=== PATIENT | male | born 1955 | race Caucasian/White ===

== ENCOUNTER 2016-07-03 05:34 | Inpatient (IN) | payer MEDICAID ==
[~2016-07-03] VITALS: Ht 165.1 cm; Wt 73.8 kg
[~2016-07-03 05:34] MED LIST: MULTI PO
[2016-07-03] MEDS ORDERED: SOD CHLORIDE 0.9% 1,000 ML IV STA (06:10)
[2016-07-03] MEDS ORDERED: DIPHTH/TET/ACEL PERTUSS (ADULT) 0.5 ML VIAL IM* ONE (06:30)
[2016-07-03] MEDS ORDERED: LORAZEPAM 2 MG INJ IV ONE (06:30)
--- NOTE | 2016-07-03 07:06 | RADRPT ---
PROCEDURE: CT BRAIN WITHOUT CONTRAST CLINICAL INDICATION: 61-year-old male with trauma. TECHNIQUE: The study was performed utilizing [employer] VCT 64-slice CT scanner. Direct axial sections were obtained from the foramen magnum to the vertex without the use of intravenous contrast material. Sagittal and coronal reformations were obtained. Sagittal and coronal reformations were obtained. One or more the following dose reduction techniques were utilized: automated exposure cont rol, adjustment of the mA and/or kV according to patient's size or use of iterative reconstruction t echnique. The images were viewed on a PACS workstation. CTD/vol = 44.7 mGy; Total Exam DLP = 720.2 mGy-cm. COMPARISON: CT brain July 27, 2015. FINDINGS: There is zfid-uj-mdpdbwvn prominence of the sulci and cisternal spaces consistent with diffuse volum e loss with compensatory ventricular enlargement. There is no evidence for mass effect or midline s hift. There are periventricular areas of decreased density consistent with microangiopathic ischemi c changes. There is no evidence for acute intra or extra-axial blood. Calcifications are seen withi n the intracranial carotid arteries bilaterally. The bony calvarium is intact. There is right pariet al scalp soft tissue swelling/subgaleal hematoma. The partially visualized paranasal sinuses and mas toid air cells are without significant abnormal soft tissue. There is again visualized a prominent l ipoma within the left upper posterior cervical region measuring approximately 4.9 x 2.9 cm. IMPRESSION: 1. The intracranial contents are without significant interval change compared to the patient's prio r study from July 27, 2015. 2. Zglx-xi-mispmchg diffuse volume loss. 3. Microangiopathic ischemic changes. 4. Vascular calcifications. 5. Right parietal scalp soft tissue swelling/subgaleal hematoma. 6. Left upper posterior cervical lipoma. .Devin Ford MD, MD Date Time Electronically viewed and signed by .Devin Ford MD, on 07/03/2016 07:06 .Debbie/
--- NOTE | 2016-07-03 07:28 | RADRPT ---
PROCEDURE: CT CERVICAL SPINE WITHOUT CONTRAST CLINICAL INDICATION: 61-year-old male with neck pain following trauma. TECHNIQUE: The study was performed utilizing a GE [id number] VCT 64-slice CT scanner. Direct axia l sections were obtained through the cervical spine. Coronal and sagittal re-formations were obtain ed. One or more of the following dose reduction techniques were utilized: automated exposure control , adjustment of the mA and/or kV according to patient's size or use of iterative reconstruction tech nique. The images were viewed on a PACS workstation. CTD/vol = 44.3 mGy; Total Exam DLP = 888.6 mGy -cm. COMPARISON: The cervical spine May 19, 2015. FINDINGS: The patients head/neck is mildly tilted to the left. There is straightening of the normal cervical lordosis. Otherwise, the cervical vertebral bodies have normal heights and anatomic alignment. Ther e is no evidence for acute cervical spine fracture. Mild degenerative changes are seen within the a tlantoaxial junction. At C2-3 there is minimal right uncovertebral degenerative changes without significant central or for aminal stenosis. At C3-4 there is mild bilateral uncovertebral degenerative changes resulting in mild bilateral jessie inal stenosis. At C4-5 there are minimal bilateral uncovertebral degenerative changes and facet arthropathy without significant central or foraminal stenosis. At C5-6 there is mild disk space narrowing. There are minimal uncovertebral degenerative changes. There is no significant central or foraminal stenosis. At C6-7 there is moderate disk space narrowing. There is posterior disk-osteophyte complex projecti ng 3 mm beyond the posterior margin. There are bilateral uncovertebral degenerative changes resulti ng in moderate right and ijsuitfj-pz-fnenpk left foraminal stenosis. At C7-T1 there is mild bilateral facet arthropathy. There is no significant central or foraminal st enosis. IMPRESSION: 1. Straightening of the normal cervical lordosis. 2. No CT evidence for acute cervical spine fracture. 3. Mild cervical spondylosis most severe at C6-7 without significant interval change compared to th e patient's prior study from May 19, 2015. .Devin Ford MD, MD Date Time Electronically viewed and signed by .Devin Ford MD, MD on 07/03/2016 07:28 .Bubba
[2016-07-03 07:39] LABS: ADD SCAN DIFF NO
[2016-07-03 07:55] LABS: ALBUMIN 3.2 g/dl (3.3-4.9); ALBUMIN/GLOBULIN RATIO 0.68; BILIRUBIN,DIRECT 0.4 mg/dl (0.00-0.20); BILIRUBIN,INDIRECT 1.9 mg/dl (0-1.1); BILIRUBIN,TOTAL 2.3 mg/dl (0.2-1.3); CREATININE 0.61 mg/dl (0.61-1.24); POTASSIUM 3.9 mmol/L (3.5-5.1); TOTAL PROTEIN 7.9 g/dl (6.1-8.1)
[2016-07-03] MEDS ORDERED: VANCOMYCIN 1 GM (PMX) 250 ML IVPB SCH (08:00)
[2016-07-03 08:04] LABS: ABNORMAL IP MESSAGE 1; BASOPHIL # 0.1 10^3/ul (0.0-0.1); BASOPHILS % 1.5 % (0.0-2.0); EOSINOPHILS # 0.3 10^3/ul (0.0-0.5); EOSINOPHILS % 5.9 % (0.0-7.0); HEMATOCRIT 37.2 % (42.0-52.0); HEMOGLOBIN 12.5 g/dl (14.0-18.0); LYMPHOCYTES # 1.1 10^3/ul (0.8-2.9); LYMPHOCYTES % 23.1 % (15.0-51.0); MEAN CORPUSCULAR HEMOGLOBIN 34.4 pg (29.0-33.0); MEAN CORPUSCULAR HGB CONC 33.6 g/dl (32.0-37.0); MEAN CORPUSCULAR VOLUME 102.5 fl (82.0-101.0); MEAN PLATELET VOLUME 12.7 fl (7.4-10.4); MONOCYTE # 0.7 10^3/ul (0.3-0.9); NEUTROPHIL # 2.5 10^3/ul (1.6-7.5); NEUTROPHILS % 54.1 % (39.0-77.0); PLATELET COUNT 33 10^3/UL (140-415); RED BLOOD COUNT 3.63 10^6/ul (4.70-6.10); RED CELL DISTRIBUTION WIDTH 16.5 % (11.5-14.5); WHITE BLOOD COUNT 4.6 10^3/ul (4.8-10.8)
--- NOTE | 2016-07-03 08:10 | RADRPT ---
PROCEDURE: XR Forearm 2 Views. CLINICAL INDICATION: Left arm pain and trauma TECHNIQUE: AP and lateral views of the left forearm were obtained. COMPARISON: No prior studies are available for comparison. FINDINGS: The osseous structures are intact. No destructive bony lesions are identified. Interosseous spaces are grossly unremarkable. The soft tissues are unremarkable. IMPRESSION: No visualized traumatic injury. If there is high clinical suspicion for traumatic injury, further evaluation with CT should be consi dered. RPTAT: AA .Mitchel Fletcher MD, Date Time Electronically viewed and signed by .Mitchel Fletcher MD, on 07/03/2016 08:10 .P/
--- NOTE | 2016-07-03 09:25 | RADRPT ---
PROCEDURE: XR Left Elbow. CLINICAL INDICATION: Trauma and pain. TECHNIQUE: AP, lateral and oblique views of the left elbow performed. COMPARISON: None. FINDINGS: There is diffuse soft tissue swelling around the elbow. A small effusion is noted. Degenerative sp urring is noted off of the medial margin of the olecranon fossa. No discrete bony fracture is noted . IMPRESSION: 1. Equivocal anterior fat pad sign which could represent a hemarthrosis. 2. No discrete fracture dislocation is identified at this time. 3. Immobilization of the elbow and follow-up imaging in 10 days is recommended if there is I index of suspicion for fracture. 4. Soft tissue swelling around the left elbow. RPTAT:AAJJ Physician Arnaldo Date Time Electronically viewed and signed by Keo Gross Physician on 07/03/2016 09:24 /
--- NOTE | 2016-07-03 11:23 | ERA ---
ER Documentation Chief Complaint Date/Time DATE: 07/03/16 TIME: 06:00 Chief Complaint FOUND IN MIDDLE OF STREE, POSS FALL, HEMATOMA ON BACK OF HEAD, ARM LAC,ETOH HPI History is supplemented by review of previous medical records and discussion with the transferring paramedics. 61-year-old male with a history of chronic alcohol abuse, liver cirrhosis, ascites, hepatic encephalopathy, atrial fibrillation, thrombocytopenia and hypertension presents the ED via ambulance after being found lying in the street. Patient states he fell earlier this morning but has retrograde amnesia to the event. Last remembers being transported to the emergency department admits to alcohol consumption but denies drug use. Complains of mild, generalized headache but denies visual changes, focal weakness or numbness. Complaining of sharp, moderate pain to the left upper extremity exacerbated by movement. Denies abdominal pain or back pain. Denies nausea, vomiting, diarrhea or constipation. No hematemesis, hematochezia or melanotic stools. No neck or back pain. No URI symptoms or cough. Denies shortness of breath, chest pain or palpitations. No fevers or chills. ROS All systems reviewed and are negative except as per history of present illness. Medications Home Meds Discontinued Scripts Multivitamins* (Theragran*) 1 Tab Tab, 1 TAB PO DAILY for 30 Days, TAB Prov:ALFREDO XIAO NP 07/30/15 Allergies Allergies: Coded Allergies: No Known Drug Allergies (Verified Allergy, Unknown, 07/03/16) PMhx/Soc Reviewed in chart. As per HPI. Anesthesia Reaction: No Hx Neurological Disorder: No Hx Respiratory Disorders: No Hx Psychiatric Problems: No Hx Miscellaneous Medical Probl: No (ETOH ABUSE ) Hx Alcohol Use: Yes Hx Substance Use: No Hx Tobacco Use: No Smoking Status: Smoker,current status unk FmHx Unknown. Not relevant to presenting complaint. Physical Exam Vitals Vital Signs Date Time Temp Pulse Resp B/P Pulse Ox O2 Delivery O2 Flow Rate FiO2 07/03/16 10:56 97.6 71 14 142/81 97 Room Air 07/03/16 10:15 64 16 138/96 98 Room Air 07/03/16 08:30 69 16 114/76 98 Room Air 07/03/16 06:13 76 16 124/71 97 Room Air 07/03/16 05:45 96.5 80 17 140/81 95 Physical Exam Const: Sleepy but easily arousable. Head: Occipital hematoma with 1.5 cm laceration. No active bleeding. Mild tenderness. Eyes: Normal Conjunctiva pupils equal reactive to light, extraocular movements are intact. Horizontal nystagmus. ENT: Normal External Ears, Nose and Mouth. Negative lynn sign. 2 cm nasal laceration/abrasion. No active bleeding. No bony tenderness or crepitus. No septal hematoma. No epistaxis. Neck: Full range of motion..~ No meningismus. Resp: Breath sounds are equal and clear to auscultation bilaterally Cardio: Regular rate and rhythm, no murmurs Abd: Soft, non tender, non distended. Normal bowel sounds Skin: No petechiae or rashes Back: No midline or flank tenderness Ext: Left upper extremity: Significant forearm swelling and tenderness with dorsal abrasion and mild bleeding. No subcutaneous crepitus. Elbow: Decreased range of motion but nontender. No shoulder swelling or tenderness. No wrist swelling or tenderness. Distal pulses 4+. Motor and sensory equal bilaterally. Neur: Sleepy but arousable. Cranial nerves II through XII are grossly intact. No focal deficit observed. Psych: Appears intoxicated but not anxious or depressed. Result Diagram: 07/04/16 1000 07/04/16 1000 Results 24 hrs Laboratory Tests Test 07/03/16 07:00 White Blood Count 4.610^3/ul Red Blood Count 3.6310^6/ul Hemoglobin 12.5g/dl Hematocrit 37.2% Mean Corpuscular Volume 102.5fl Mean Corpuscular Hemoglobin 34.4pg Mean Corpuscular Hemoglobin Concent 33.6g/dl Red Cell Distribution Width 16.5% Platelet Count 3310^3/UL Mean Platelet Volume 12.7fl Neutrophils % 54.1% Lymphocytes % 23.1% Monocytes % 15.0% Eosinophils % 5.9% Basophils % 1.5% Nucleated Red Blood Cells % 0.0/100WBC Neutrophils # 2.510^3/ul Lymphocytes # 1.110^3/ul Monocytes # 0.710^3/ul Eosinophils # 0.310^3/ul Basophils # 0.110^3/ul Nucleated Red Blood Cells # 0.010^3/ul Large Platelets FEW Giant Platelets FEW Sodium Level 143mmol/L Potassium Level 3.9mmol/L Chloride Level 111mmol/L Carbon Dioxide Level 26mmol/L Anion Gap 10 Blood Urea Nitrogen 8mg/dl Creatinine 0.61mg/dl Glucose Level 114mg/dl Calcium Level 8.0mg/dl Total Bilirubin 2.3mg/dl Direct Bilirubin 0.40mg/dl Indirect Bilirubin 1.9mg/dl Aspartate Amino Transf (AST/SGOT) 122IU/L Alanine Aminotransferase (ALT/SGPT) 41IU/L Alkaline Phosphatase 180IU/L Creatine Kinase 1003IU/L Total Protein 7.9g/dl Albumin 3.2g/dl Globulin 4.70g/dl Albumin/Globulin Ratio 0.68 Ethyl Alcohol Level 252.0mg/dl Current Medications Medications (Trade) Dose Ordered Sig/Nati Route PRN Reason Start Time Stop Time Status Last Admin Dose Admin Diphtheria/ Tetanus/Acell Pertussis 0.5 ml 0.5 ml ONCE ONCE IM* 07/03/16 06:30 07/03/16 06:31 DC 07/03/16 07:10 Sodium Chloride (NS) 1,000 ml @ 1,000 mls/hr Q1H STAT IV 07/03/16 06:10 07/03/16 07:09 DC 07/03/16 07:11 Lorazepam 1 mg 1 mg ONCE ONCE IV 07/03/16 06:30 07/03/16 06:31 DC 07/03/16 07:10 Vancomycin HCl (Vancocin) 250 ml @ 125 mls/hr ONCE IVPB 07/03/16 08:00 07/03/16 09:59 DC 07/03/16 08:23 PROCEDURE: CT BRAIN WITHOUT CONTRAST CLINICAL INDICATION: 61-year-old male with trauma. TECHNIQUE: The study was performed utilizing [employer] VCT 64-slice CT scanner. Direct axial sections were obtained from the foramen magnum to the vertex without the use of intravenous contrast material. Sagittal and coronal reformations were obtained. Sagittal and coronal reformations were obtained. One or more the following dose reduction techniques were utilized: automated exposure control, adjustment of the mA and/or kV according to patient's size or use of iterative reconstruction technique. The images were viewed on a PACS workstation. CTD/vol = 44.7 mGy; Total Exam DLP = 720.2 mGy-cm. COMPARISON: CT brain July 27, 2015. FINDINGS: There is uhxi-ws-lymhxiet prominence of the sulci and cisternal spaces consistent with diffuse volume loss with compensatory ventricular enlargement. There is no evidence for mass effect or midline shift. There are periventricular areas of decreased density consistent with microangiopathic ischemic changes. There is no evidence for acute intra or extra-axial blood. Calcifications are seen within the intracranial carotid arteries bilaterally. The bony calvarium is intact. There is right parietal scalp soft tissue swelling /subgaleal hematoma. The partially visualized paranasal sinuses and mastoid air cells are without significant abnormal soft tissue. There is again visualized a prominent lipoma within the left upper posterior cervical region measuring approximately 4.9 x 2.9 cm. IMPRESSION: 1. The intracranial contents are without significant interval change compared to the patient's prior study from July 27, 2015. 2. Nuhz-vy-bwihvobe diffuse volume loss. 3. Microangiopathic ischemic changes. 4. Vascular calcifications. 5. Right parietal scalp soft tissue swelling/subgaleal hematoma. 6. Left upper posterior cervical lipoma. .Devin Ford MD, MD Date Time Electronically viewed and signed by .Devin Ford MD, MD on 07/03/2016 07:06 .M/ PROCEDURE: CT CERVICAL SPINE WITHOUT CONTRAST CLINICAL INDICATION: 61-year-old male with neck pain following trauma. TECHNIQUE: The study was performed utilizing a GE [employer] 64-slice CT scanner. Direct axial sections were obtained through the cervical spine. Coronal and sagittal re-formations were obtained. One or more of the following dose reduction techniques were utilized: automated exposure control, adjustment of the mA and/or kV according to patient's size or use of iterative reconstruction technique. The images were viewed on a PACS workstation. CTD/ vol = 44.3 mGy; Total Exam DLP = 888.6 mGy-cm. COMPARISON: The cervical spine May 19, 2015. FINDINGS: The patients head/neck is mildly tilted to the left. There is straightening of the normal cervical lordosis. Otherwise, the cervical vertebral bodies have normal heights and anatomic alignment. There is no evidence for acute cervical spine fracture. Mild degenerative changes are seen within the atlantoaxial junction. At C2-3 there is minimal right uncovertebral degenerative changes without significant central or foraminal stenosis. At C3-4 there is mild bilateral uncovertebral degenerative changes resulting in mild bilateral foraminal stenosis. At C4-5 there are minimal bilateral uncovertebral degenerative changes and facet arthropathy without significant central or foraminal stenosis. At C5-6 there is mild disk space narrowing. There are minimal uncovertebral degenerative changes. There is no significant central or foraminal stenosis. At C6-7 there is moderate disk space narrowing. There is posterior disk- osteophyte complex projecting 3 mm beyond the posterior margin. There are bilateral uncovertebral degenerative changes resulting in moderate right and urnazgsp-ln-cvcdae left foraminal stenosis. At C7-T1 there is mild bilateral facet arthropathy. There is no significant central or foraminal stenosis. IMPRESSION: 1. Straightening of the normal cervical lordosis. 2. No CT evidence for acute cervical spine fracture. 3. Mild cervical spondylosis most severe at C6-7 without significant interval change compared to the patient's prior study from May 19, 2015. .Devin Ford MD, MD Date Time Electronically viewed and signed by .Devin Ford MD, MD on 07/03/2016 07:28 .M/ PROCEDURE: XR Left Elbow. CLINICAL INDICATION: Trauma and pain. TECHNIQUE: AP, lateral and oblique views of the left elbow performed. COMPARISON: None. FINDINGS: There is diffuse soft tissue swelling around the elbow. A small effusion is noted. Degenerative spurring is noted off of the medial margin of the olecranon fossa. No discrete bony fracture is noted. IMPRESSION: 1. Equivocal anterior fat pad sign which could represent a hemarthrosis. 2. No discrete fracture dislocation is identified at this time. 3. Immobilization of the elbow and follow-up imaging in 10 days is recommended if there is I index of suspicion for fracture. 4. Soft tissue swelling around the left elbow. RPTAT:AAJJ Physician Arnaldo Date Time Electronically viewed and signed by Physician Arnaldo on 07/03/2016 09:24 JM/ PROCEDURE: XR Forearm 2 Views. CLINICAL INDICATION: Left arm pain and trauma TECHNIQUE: AP and lateral views of the left forearm were obtained. COMPARISON: No prior studies are available for comparison. FINDINGS: The osseous structures are intact. No destructive bony lesions are identified. Interosseous spaces are grossly unremarkable. The soft tissues are unremarkable. IMPRESSION: No visualized traumatic injury. If there is high clinical suspicion for traumatic injury, further evaluation with CT should be considered. RPTAT: AA .Mitchel Fletcher MD, MD Date Time Electronically viewed and signed by .Mitchel Fletcher MD, MD on 07/03/2016 08:10 .P/ Procedures/MDM DOCUMENTS REVIEWED: ED nurse, prior ED, prior records Laceration Repair by me: Anesthesia: 1% lidocaine locally Location: Scalp Tendon/Joint/Nerves: No injury Foreign body: None detected after copious irrigation and exploration Technique: 3 surgical akhil Complexity: No subcutaneous sutures/mucosal repair/ edge excision Post Closure Length: 1.5 cm Patient's bleeding was easily controlled in the department and there is no indication of anemia. No evidence of compartment syndrome, neurologic injury, vascular injury, open joint, tendon laceration, or foreign body. 48 hour wound check. Scar minimization instructions given. MEDICAL DECISION MAKIN-year-old male with a history of chronic alcohol abuse, liver cirrhosis, ascites, hepatic encephalopathy, atrial fibrillation, thrombocytopenia and hypertension presents the ED via ambulance after being found lying in the street. Altered mental status with elevated alcohol level consistent with EtOH intoxication complicated by an elevated ammonia level and hepatic encephalopathy. Closed head injury without CT evidence of intracranial bleed, infarct, mass or hydrocephalus. Occipital scalp laceration repaired primarily. Cervical spine imaging is negative for fracture or subluxation. Left upper extremity swelling and tenderness concerning for developing compartment syndrome and orthopedic consult obtained. No underlying radius or ulnar fracture. Borderline fat pad sign and a occult radial head fracture is not ruled out. Thrombocytopenia without evidence of active bleeding. Abdominal exam is benign without rebound, guarding or signs of peritonitis. Patient be admitted to [facility] for orthopedic consult, further observation and management. Counseled patient regarding diagnosis, diagnostic results and plan for admission. CALLS/CONSULTS: Time 09:50, Dr. Thompson, Recommends: Admission for observation and elevation of the extremity. Will consult. CALLS/CONSULTS: Time: 10:15, Dr Olivares. Recommends: Admission to med/surg PATIENT CARE TRANSITIONED: Time: 11:15, Dr. Olivares. Departure Diagnosis: Primary Impression: Acute alcohol intoxication Qualified Code: F10.129 - Acute alcohol intoxication, with unspecified complication Additional Impressions: Closed head injury Qualified Code: S09.90XA - Closed head injury, initial encounter Thrombocytopenia Scalp laceration Qualified Code: S01.01XA - Scalp laceration, initial encounter Pain and swelling of left upper extremity Liver cirrhosis Qualified Code: K70.31 - Alcoholic cirrhosis of liver with ascites Hepatic encephalopathy Condition: Serious ABDULLAHI KWONG MD Jul 03, 2016 11:23 Closed head injury Thrombocytopenia Scalp laceration Pain and swelling of left upper extremity Liver cirrhosis Condition: Serious ABDULLAHI KWONG MD Jul 03, 2016 11:23
[2016-07-03] MEDS ORDERED: ONDANSETRON 4 MG INJ IV PRN (11:30)
[2016-07-03] MEDS ORDERED: ACETAMINOPHEN 325 MG TAB PO PRN ×2 (11:30→15:00)
--- NOTE | 2016-07-03 14:49 | HP ---
Date/Time of Note Date/Time of Note DATE: 07/03/16 TIME: 14:39 Assessment/Plan VTE Prophylaxis VTE Prophylaxis Intervention: SCD's Assessment/Plan Assessment/Plan A 60-year-old male homeless alcoholic found on the street with 1. ?Fall with nasal and accipital injury but head CT negative 2. Probable R forearm fracture 3. Chronic atrial fibrillation, rate controlled. 4. History of high blood pressure, controlled. 5. 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 6. Chronic liver disease secondary to chronic alcoholism with hyperbilirubinemia, thrombocytopenia and coagulopathy 7. Hyperammonemia PLAN OF CARE: * Patient is homeless and we cannot guarantee good followup hence will admit for further care and obs * CT of R UE to r/o acute fracture from fall / in the interim keep forearm immobilized with sling / Dr Thompson consulted per ER * Resume all prev home meds * Add banana bag and librium to regimen * PRN pain control/ antiemetics/ antipyretics/ supportive care HPI/ROS Admit Date/Time Admit Date/Time 07/03/16 Hx of Present Illness 61-year-old male with a history of chronic alcohol abuse, liver cirrhosis, ascites, hepatic encephalopathy, atrial fibrillation, thrombocytopenia and hypertension presents the ED via ambulance after being found lying in the street. He had complained of headache and RUE pain on arrival. ROS 12 point review if systems was done and pertinent findings are as noted. Denies abdominal pain or back pain. Denies nausea, vomiting, diarrhea or constipation. No hematemesis, hematochezia or melanotic stools. No neck or back pain. No URI symptoms or cough. Denies shortness of breath, chest pain or palpitations. No fevers or chills. PMH/Family/Social Past Medical History 1. Alcoholism. 2. Chronic liver disease secondary to alcoholism. 3. High blood pressure. 4. History of atrial fibrillation. Past Surgical History Past Surgical Hx: no surgical history Social History Known alcoholic, has a remote history of substance abuse. Alcohol Use: heavy Smoking Status: Smoker,current status unk Drug Use: other (remotely) Exam/Review of Systems Vital Signs Vitals VS - Last 72 Hours, by Label Date Time Temp Pulse Resp B/P Pulse Ox O2 Delivery O2 Flow Rate FiO2 07/03/16 10:56 97.6 71 14 142/81 97 Room Air 07/03/16 10:15 64 16 138/96 98 Room Air 07/03/16 08:30 69 16 114/76 98 Room Air 07/03/16 06:13 76 16 124/71 97 Room Air 07/03/16 05:45 96.5 80 17 140/81 95 Vital Signs Date Time Temp Pulse Resp B/P Pulse Ox O2 Delivery O2 Flow Rate FiO2 07/03/16 10:56 97.6 71 14 142/81 97 Room Air Exam Exam GENERAL: The patient is lethargic and sleepy, but arousable. Once aroused, he was able to answer our questions. HEENT: Head is normocephalic. Nasal laceration. R Occipital hematoma with 1.5 cm laceration. There is no oozing or discharge. He has scleral jaundice, mild. NECK: Supple without adenopathy. CHEST: Clear with reduced air entry in the bases. CARDIOVASCULAR: S1 and S2, no tachycardia, no murmurs. ABDOMEN: Soft, nontender, mild distention, normoactive bowel sounds. EXTREMITIES: Lower extremities negative for edema. Left upper extremity has significant forearm swelling and tenderness with dorsal abrasion and mild bleeding. No subcutaneous crepitus. Elbow: Decreased range of motion but nontender. NEUROLOGIC: He does not seem to have any focal deficits. SKIN: Apart from the abrasion noted above, no other gross rash. Labs Result Diagram: 07/03/16 0707/03/16 07 Procedures Procedures PROCEDURE: XR Left Elbow. CLINICAL INDICATION: Trauma and pain. TECHNIQUE: AP, lateral and oblique views of the left elbow performed. COMPARISON: None. FINDINGS: There is diffuse soft tissue swelling around the elbow. A small effusion is noted. Degenerative spurring is noted off of the medial margin of the olecranon fossa. No discrete bony fracture is noted. IMPRESSION: 1. Equivocal anterior fat pad sign which could represent a hemarthrosis. 2. No discrete fracture dislocation is identified at this time. 3. Immobilization of the elbow and follow-up imaging in 10 days is recommended if there is I index of suspicion for fracture. 4. Soft tissue swelling around the left elbow. RPTAT:AAJJ Physician Arnaldo Date Time Electronically viewed and signed by Physician Arnaldo on 07/03/2016 09:24 JM/ CC: ABDULLAHI KWONG MD ROCEDURE: XR Forearm 2 Views. CLINICAL INDICATION: Left arm pain and trauma TECHNIQUE: AP and lateral views of the left forearm were obtained. COMPARISON: No prior studies are available for comparison. FINDINGS: The osseous structures are intact. No destructive bony lesions are identified. Interosseous spaces are grossly unremarkable. The soft tissues are unremarkable. IMPRESSION: No visualized traumatic injury. If there is high clinical suspicion for traumatic injury, further evaluation with CT should be considered. RPTAT: AA .Mitchel Fletcher MD, MD Date Time Electronically viewed and signed by .Mitchel Fletcher MD, MD on 07/03/2016 08:10 .P/ CC: ABDULLAHI KWONG MD PROCEDURE: CT BRAIN WITHOUT CONTRAST CLINICAL INDICATION: 61-year-old male with trauma. TECHNIQUE: The study was performed utilizing [employer] 64-slice CT scanner. Direct axial sections were obtained from the foramen magnum to the vertex without the use of intravenous contrast material. Sagittal and coronal reformations were obtained. Sagittal and coronal reformations were obtained. One or more the following dose reduction techniques were utilized: automated exposure control, adjustment of the mA and/or kV according to patient's size or use of iterative reconstruction technique. The images were viewed on a PACS workstation. CTD/vol = 44.7 mGy; Total Exam DLP = 720.2 mGy-cm. COMPARISON: CT brain July 27, 2015. FINDINGS: There is [id number] prominence of the sulci and cisternal spaces consistent with diffuse volume loss with compensatory ventricular enlargement. There is no evidence for mass effect or midline shift. There are periventricular areas of decreased density consistent with microangiopathic ischemic changes. There is no evidence for acute intra or extra-axial blood. Calcifications are seen within the intracranial carotid arteries bilaterally. The bony calvarium is intact. There is right parietal scalp soft tissue swelling /subgaleal hematoma. The partially visualized paranasal sinuses and mastoid air cells are without significant abnormal soft tissue. There is again visualized a prominent lipoma within the left upper posterior cervical region measuring approximately 4.9 x 2.9 cm. IMPRESSION: 1. The intracranial contents are without significant interval change compared to the patient's prior study from July 27, 2015. 2. Esyp-tr-xyplbkrd diffuse volume loss. 3. Microangiopathic ischemic changes. 4. Vascular calcifications. 5. Right parietal scalp soft tissue swelling/subgaleal hematoma. 6. Left upper posterior cervical lipoma. .Devin Ford MD, Date Time Electronically viewed and signed by .Devin Ford MD, MD on 07/03/2016 07:06 .M/ CC: ABDULLAHI KWONG MD PROCEDURE: CT CERVICAL SPINE WITHOUT CONTRAST CLINICAL INDICATION: 61-year-old male with neck pain following trauma. TECHNIQUE: The study was performed utilizing a [employer] 64-slice CT scanner. Direct axial sections were obtained through the cervical spine. Coronal and sagittal re-formations were obtained. One or more of the following dose reduction techniques were utilized: automated exposure control, adjustment of the mA and/or kV according to patient's size or use of iterative reconstruction technique. The images were viewed on a PACS workstation. CTD/ vol = 44.3 mGy; Total Exam DLP = 888.6 mGy-cm. COMPARISON: The cervical spine May 19, 2015. FINDINGS: The patients head/neck is mildly tilted to the left. There is straightening of the normal cervical lordosis. Otherwise, the cervical vertebral bodies have normal heights and anatomic alignment. There is no evidence for acute cervical spine fracture. Mild degenerative changes are seen within the atlantoaxial junction. At C2-3 there is minimal right uncovertebral degenerative changes without significant central or foraminal stenosis. At C3-4 there is mild bilateral uncovertebral degenerative changes resulting in mild bilateral foraminal stenosis. At C4-5 there are minimal bilateral uncovertebral degenerative changes and facet arthropathy without significant central or foraminal stenosis. At C5-6 there is mild disk space narrowing. There are minimal uncovertebral degenerative changes. There is no significant central or foraminal stenosis. At C6-7 there is moderate disk space narrowing. There is posterior disk- osteophyte complex projecting 3 mm beyond the posterior margin. There are bilateral uncovertebral degenerative changes resulting in moderate right and xbtcwgiq-an-[id number] left foraminal stenosis. At C7-T1 there is mild bilateral facet arthropathy. There is no significant central or foraminal stenosis. IMPRESSION: 1. Straightening of the normal cervical lordosis. 2. No CT evidence for acute cervical spine fracture. 3. Mild cervical spondylosis most severe at C6-7 without significant interval change compared to the patient's prior study from May 19, 2015. .Devin Ford MD, MD Date Time Electronically viewed and signed by .Devin Ford MD, MD on 07/03/2016 07:28 .KORY ORTIZ Jul 03, 2016 14:49
[2016-07-03] MEDS ORDERED: hydrALAzine 20 MG INJ IV PRN (15:00)
[2016-07-03] MEDS: SOD CHLORIDE 0.9% 1,000 ML IV SCH ×2 (15:30→22:56)
[2016-07-03 18:37] VITALS: TEMP 98.2
--- NOTE | 2016-07-03 21:10 | RADRPT ---
PROCEDURE: CT LEFT DISTAL ARM, ELBOW, FOREARM, AND WRIST CLINICAL INDICATION: Possible to obscure forearm fracture. Spine pain and swelling after falling. TECHNIQUE: CT scan of the left upper extremity was performed on a multi -slice scanner. No IV con trast was administered. Coronal and sagittal reformatted images were obtained from the axial [facility] e images. The total exam DLP equals 936.07 mGy-cm. The CDTI volume was 22.03 mGy. One or more of the following dose reduction techniques were used: - Automated exposure control. - Adjustment of the mA and/or kV according to patient size . - Use of iterative reconstruction technique. Images were reviewed on a high-resolution PACS workstation. COMPARISON: None. FINDINGS: No elbow dislocation or fracture identified. No evidence for radial or ulnar shaft fracture. No wr ist carpal fracture is seen. There is probable diastasis between the scaphoid and lunate suggesting scapholunate ligament tear. There is a tiny calcification adjacent to the ulnar styloid tip which could be an acute or chronic styloid tip fracture seen on coronal reconstruction (labeled sagittal) image number 34. There is diffuse soft tissue swelling of the forearm. No radiopaque foreign body i s seen. There is moderate elbow arthrosis. No bone destructive changes or erosive changes are seen. IMPRESSION: 1. No acute elbow fractures seen. 2. Diffuse forearm soft tissue swelling. No radial ulnar shaft fractures seen. 3. There is a tiny calcification adjacent to the ulnar styloid tip which could be acute or chronic fracture. 4. Scapholunate diastasis consistent with a ligament tear. Age is indeterminate. RPTAT: XX .Lamine Jean MD, MD Date Time Electronically viewed and signed by .Lamine Jean MD, MD on 07/03/2016 21:10 .T/
[2016-07-03] MEDS: CHLORDIAZEPOXIDE 25 MG CAP PO SCH (22:54)
[2016-07-03] MEDS: FAMOTIDINE 20 MG INJ IV SCH (22:54)
[2016-07-04] VITALS: Ht 165.1 cm; Wt 73.8 kg
[2016-07-04 01:01] VITALS: BP 159/86; RESP 20
[2016-07-04 07:30] VITALS: BP 157/86; RESP 16
[2016-07-04] MEDS: SOD CHLORIDE 0.9% 1,000 ML IV SCH ×3 (09:32→23:00)
[2016-07-04] MEDS: CHLORDIAZEPOXIDE 25 MG CAP PO SCH ×3 (09:32→21:15)
[2016-07-04] MEDS: FAMOTIDINE 20 MG INJ IV SCH (09:32)
[2016-07-04] MEDS: LACTULOSE 30ML CUP PO SCH (09:32)
[2016-07-04 10:21] LABS: ADD SCAN DIFF NO
[2016-07-04 10:30] LABS: ABNORMAL IP MESSAGE 1; HEMATOCRIT 31.7 % (42.0-52.0); HEMOGLOBIN 10.6 g/dl (14.0-18.0); MEAN CORPUSCULAR HEMOGLOBIN 33.5 pg (29.0-33.0); MEAN CORPUSCULAR HGB CONC 33.4 g/dl (32.0-37.0); MEAN CORPUSCULAR VOLUME 100.3 fl (82.0-101.0); RED BLOOD COUNT 3.16 10^6/ul (4.70-6.10); RED CELL DISTRIBUTION WIDTH 14.9 % (11.5-14.5); WHITE BLOOD COUNT 5.2 10^3/ul (4.8-10.8)
[2016-07-04 10:35] LABS: PLATELET COUNT 30 10^3/UL (140-415)
[2016-07-04 10:39] LABS: ALBUMIN 2.7 g/dl (3.3-4.9); INR 1.94; PROTIME 22.3 Sec (12.2-14.2); PT RATIO 1.7
[2016-07-04 10:40] LABS: PARTIAL THROMBOPLASTIN TIME 40.5 Sec (25.0-35.0); POTASSIUM 3.6 mmol/L (3.5-5.1)
[2016-07-04 10:42] LABS: ALBUMIN/GLOBULIN RATIO 0.62; BILIRUBIN,DIRECT 1.3 mg/dl (0.00-0.20); BILIRUBIN,INDIRECT 4.5 mg/dl (0-1.1); BILIRUBIN,TOTAL 5.8 mg/dl (0.2-1.3); CREATININE 0.58 mg/dl (0.61-1.24)
[2016-07-04 10:43] LABS: CALCIUM 7.8 mg/dl (8.4-10.2); MAGNESIUM 1.7 mg/dl (1.7-2.5)
[2016-07-04] MEDS: MULTIVITAMINS 10 ML, THIAMINE 100 MG, FOLIC ACID 1 MG in SOD CHLORIDE 0.9% 1,000 ML IVPB SCH (12:32)
[2016-07-04 13:54] LABS: BASOPHIL # 0.1 10^3/ul (0.0-0.1); EOSINOPHILS # 0.2 10^3/ul (0.0-0.5); LYMPHOCYTES # 0.9 10^3/ul (0.8-2.9); MONOCYTE # 0.5 10^3/ul (0.3-0.9); NEUTROPHIL # 3.6 10^3/ul (1.6-7.5)
[2016-07-04 13:55] LABS: PLATELET ESTIMATE PLT APPEAR DECREASED
--- NOTE | 2016-07-04 14:44 | PN ---
Date/Time of Note Date/Time of Note DATE: 07/04/16 TIME: 14:28 Assessment/Plan VTE Prophylaxis VTE Prophylaxis Intervention: other Lines/Catheters [facility] Peripheral IV Urinary Cath still in place: No Assessment/Plan Assessment/Plan 1. Alcohol intoxication with fall, improving 2. Head injury with right parietal scalp soft tissue swelling/subgaleal hematoma , no intracranial hemorrhage on CT scan 3. left elbow injury, sling, NWB 4. Chronic atrial fibrillation, rate controlled. 5. Hypertension, controlled.65. 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 6. Chronic liver disease secondary to chronic alcoholism with hyperbilirubinemia, thrombocytopenia, coagulopathy, and hyperammonemia Subjective 24 Hr Interval Summary Free Text/Dictation confused. no distress Exam/Review of Systems Vital Signs Vitals Vital Signs Date Time Temp Pulse Resp B/P Pulse Ox O2 Delivery O2 Flow Rate FiO2 07/04/16 07:30 98.6 68 16 157/86 97 07/03/16 18:37 Room Air Intake and Output 07/03/16 07/03/16 07/04/16 15:00 23:00 07:00 Intake Total 850 ml Output Total 1600 ml Balance -750 ml Exam Constitutional: alert Psych: nl mood/affect, no complaints Head: atraumatic, normocephalic Eyes: EOMI, nl conjunctiva, nl lids ENMT: nl external ears & nose, nl lips & teeth, nl nasal mucosa & septum Neck: non-tender, supple Respiratory: clear to auscultation, normal air movement, No congested cough, No crackles/rales, No diminished breath sounds, No intercostal retraction, No labored breathing, No other, No respirations, No tactile fremitus, No wheezing Cardiovascular: irregular rhythm, nl pulses, No S3, No S4, No bruits, No diastolic murmur, No edema, No gallop, No jugular venous distention (JVD), No murmurs/extra sounds, No other, No rub, No systolic murmur Gastrointestinal: nl liver, spleen, non-tender, soft, No ascites, No bowel sounds, No distended, No firm, No hepatomegaly, No mass , No other, No rebound or guarding, No splenomegaly, No surgical scars, No tender Musculoskeletal: other (left elbow edema, pain on movement) Neurological: SHRUB GROWER II-XII intact, confused, nl strength Results Result Diagram: 07/04/16 1000 07/04/16 1000 Results 24 hrs Laboratory Tests Test 07/04/16 10:00 White Blood Count 5.2 Red Blood Count 3.16 L Hemoglobin 10.6 L Hematocrit 31.7 L Mean Corpuscular Volume 100.3 Mean Corpuscular Hemoglobin 33.5 H Mean Corpuscular Hemoglobin Concent 33.4 Red Cell Distribution Width 14.9 H Platelet Count 30 L Mean Platelet Volume Neutrophils % 69.0 Lymphocytes % 17.0 Monocytes % 9.0 Eosinophils % 3.0 Basophils % 2.0 Neutrophils # 3.6 Lymphocytes # 0.9 Monocytes # 0.5 Eosinophils # 0.2 Basophils # 0.1 Platelet Estimate PLT APPEAR DECREASED Prothrombin Time 22.3 H Prothrombin Time Ratio 1.7 INR International Normalized Ratio 1.94 Activated Partial Thromboplast Time 40.5 H Sodium Level 138 Potassium Level 3.6 Chloride Level 104 Carbon Dioxide Level 24 Anion Gap 14 Blood Urea Nitrogen 8 Creatinine 0.58 L Glucose Level 156 Calcium Level 7.8 L Magnesium Level 1.7 Total Bilirubin 5.8 #H Direct Bilirubin 1.30 #H Indirect Bilirubin 4.5 H Aspartate Amino Transf (AST/SGOT) 88 H Alanine Aminotransferase (ALT/SGPT) 33 Alkaline Phosphatase 102 Total Protein 7.0 Albumin 2.7 L Globulin 4.30 H Albumin/Globulin Ratio 0.62 Medications Medications Current Medications Multivitamins/ Thiamine HCl/ Folic Acid/Sodium Chloride (Mvi Adult/ Vitamin B1/ Folic Acid/NS) 1,011.2 ml @ 125 mls/ hr DAILY@09 IVPB Last administered on 12:32; Admin Dose 125 MLS/HR; Start 07/04/16 at 09:00 Chlordiazepoxide 25 mg 25 mg TID PO Last administered on 07/04/16 12:47; Admin Dose 25 MG; Start 07/03/16 at 21:00; Stop 07/06/16 at 20:59 Sodium Chloride (NS) 1,000 ml @ 125 mls/hr Q8H IV Last administered on 09:32; Admin Dose 125 MLS/HR; Start 07/03/16 at 15:00 Hydralazine HCl (Apresoline) 10 mg Q6H PRN IV sbp>160mmhg; Start 07/03/16 at 15 :00 Famotidine (Pepcid Iv) 20 mg BID IV Last administered on 07/04/16 09:32; Admin Dose 20 MG; Start 07/03/16 at 21:00 Lactulose (Enulose) 20 gm DAILY PO Last administered on 07/04/16 09:32; Admin Dose 20 GM; Start 07/04/16 at 09:00 Acetaminophen (Tylenol Tab) 650 mg Q6H PRN PO PAIN AND OR ELEVATED TEMP; Start 07/03/16 at 15:00 JONO HATFIELD MD Jul 04, 2016 14:42
[2016-07-04] MEDS ORDERED: LORAZEPAM 2 MG INJ IV PRN (16:30)
[2016-07-04] MEDS: FAMOTIDINE 20 MG TAB PO SCH (21:15)
[2016-07-04 21:37] VITALS: BP 157/92; RESP 18
[2016-07-05 07:34] VITALS: BP 132/91; RESP 18
[2016-07-05] MEDS: MULTIVITAMINS 10 ML, THIAMINE 100 MG, FOLIC ACID 1 MG in SOD CHLORIDE 0.9% 1,000 ML IVPB SCH (07:58)
[2016-07-05] MEDS: FAMOTIDINE 20 MG TAB PO SCH ×2 (08:10→22:01)
[2016-07-05] MEDS: CHLORDIAZEPOXIDE 25 MG CAP PO SCH ×3 (08:10→22:01)
[2016-07-05] MEDS: LACTULOSE 30ML CUP PO SCH (08:10)
[2016-07-05 08:21] LABS: ADD SCAN DIFF NO
[2016-07-05 08:29] LABS: ABNORMAL IP MESSAGE 1; HEMATOCRIT 31.6 % (42.0-52.0); HEMOGLOBIN 10.7 g/dl (14.0-18.0); MEAN CORPUSCULAR HEMOGLOBIN 33.8 pg (29.0-33.0); MEAN CORPUSCULAR HGB CONC 33.9 g/dl (32.0-37.0); MEAN CORPUSCULAR VOLUME 99.7 fl (82.0-101.0); RED BLOOD COUNT 3.17 10^6/ul (4.70-6.10); WHITE BLOOD COUNT 5.9 10^3/ul (4.8-10.8)
[2016-07-05 08:50] LABS: ALBUMIN 2.8 g/dl (3.3-4.9); ALBUMIN/GLOBULIN RATIO 0.66; BILIRUBIN,DIRECT 0.9 mg/dl (0.00-0.20); BILIRUBIN,INDIRECT 3.3 mg/dl (0-1.1); BILIRUBIN,TOTAL 4.2 mg/dl (0.2-1.3); CALCIUM 8.1 mg/dl (8.4-10.2); CREATININE 0.53 mg/dl (0.61-1.24); POTASSIUM 3.5 mmol/L (3.5-5.1)
[2016-07-05 09:05] LABS: PLATELET COUNT 27 10^3/UL (140-415)
[2016-07-05 12:10] LABS: BASOPHIL # 0.1 10^3/ul (0.0-0.1); EOSINOPHILS # 0.4 10^3/ul (0.0-0.5); LYMPHOCYTES # 0.8 10^3/ul (0.8-2.9); MONOCYTE # 0.8 10^3/ul (0.3-0.9); NEUTROPHIL # 3.7 10^3/ul (1.6-7.5)
[2016-07-05 12:11] LABS: PLATELET ESTIMATE PLT APPEAR DECREASED
[2016-07-05] MEDS ORDERED: HYDR-906 PO (13:46)
--- NOTE | 2016-07-05 13:56 | DS ---
Date/Time of Note Date/Time of Note DATE: 07/05/16 TIME: 13:47 Discharge Summary Admission/Discharge Info Admit Date/Time Jul 03, 2016 at 11:17 Discharge Date/Time Final Diagnosis 1. Alcohol intoxication with fall, improved 2. Head injury with right parietal scalp soft tissue swelling/subgaleal hematoma , no intracranial hemorrhage on CT scan 3. left elbow injury, sling, NWB, follow up with ortho 4. Chronic atrial fibrillation, rate controlled. 5. Hypertension, controlled.. 6. Chronic liver disease secondary to chronic alcoholism with hyperbilirubinemia, thrombocytopenia, coagulopathy, and hyperammonemia 7. Chronic megaloblastic anemia secondary to chronic alcoholism Patient Condition: Stable Hx of Present Illness 61-year-old male with a history of chronic alcohol abuse, liver cirrhosis, ascites, hepatic encephalopathy, atrial fibrillation, thrombocytopenia and hypertension presents the ED via ambulance after being found lying in the street. He had complained of headache and RUE pain on arrival. Hospital Course Alcohol level is 252 on admission. He has been given Banan bag after the admission. Clinically, no obvious alcohol withdrawal symptoms. For trauma on head, CT scan brain on admission showed no acute intracranial bleeding. There was Right parietal scalp soft tissue swelling/subgaleal hematoma that has been stable and improving. Patient had left elbow swelling and pain, X-ray showed no fracture or dislocation. Follow up with ortho. Home Meds Active Scripts Hydrocodone/Acetaminophen ([place] 5-325 Tablet) 1 Each Tablet, 1 EACH PO q4h , # 20 TAB Prov:JONO HATFIELD MD 07/05/16 Discontinued Scripts Multivitamins* (Theragran*) 1 Tab Tab, 1 TAB PO DAILY for 30 Days, TAB Prov:ALFREDO XIAO NP 07/30/15 Follow-up Plan PCP in one week Ortho in 2 weeks Pending Labs Laboratory Tests Test 07/05/16 07:57 White Blood Count 5.910^3/ul (4.8-10.8) Red Blood Count 3.1710^6/ul (4.70-6.10) Hemoglobin 10.7g/dl (14.0-18.0) Hematocrit 31.6% (42.0-52.0) Mean Corpuscular Volume 99.7fl (82.0-101.0) Mean Corpuscular Hemoglobin 33.8pg (29.0-33.0) Mean Corpuscular Hemoglobin Concent 33.9g/dl (32.0-37.0) Red Cell Distribution Width 15.0% (11.5-14.5) Platelet Count 2710^3/UL (140-415) Mean Platelet Volume fl (7.4-10.4) Neutrophils % 63.0% (39.0-77.0) Band Neutrophils % 1.0% (0.0-5.0) Lymphocytes % 14.0% (15.0-51.0) Monocytes % 14.0% (0.0-11.0) Eosinophils % 6.0% (0.0-7.0) Basophils % 2.0% (0.0-2.0) Neutrophils # 3.710^3/ul (1.6-7.5) Lymphocytes # 0.810^3/ul (0.8-2.9) Monocytes # 0.810^3/ul (0.3-0.9) Eosinophils # 0.410^3/ul (0.0-0.5) Basophils # 0.110^3/ul (0.0-0.1) Platelet Estimate PLT APPEAR DECREASED Sodium Level 138mmol/L (135-144) Potassium Level 3.5mmol/L (3.5-5.1) Chloride Level 111mmol/L (97-110) Carbon Dioxide Level 22mmol/L (21-31) Anion Gap 9 (8-16) Blood Urea Nitrogen 6mg/dl (7-20) Creatinine 0.53mg/dl (0.61-1.24) Glucose Level 113mg/dl (70-220) Calcium Level 8.1mg/dl (8.4-10.2) Total Bilirubin 4.2mg/dl (0.2-1.3) Direct Bilirubin 0.90mg/dl (0.00-0.20) Indirect Bilirubin 3.3mg/dl (0-1.1) Aspartate Amino Transf (AST/SGOT) 80IU/L (15-46) Alanine Aminotransferase (ALT/SGPT) 35IU/L (13-69) Alkaline Phosphatase 124IU/L (42-121) Ammonia 71umol/l (9-30) Total Protein 7.0g/dl (6.1-8.1) Albumin 2.8g/dl (3.3-4.9) Globulin 4.20g/dl (1.3-3.2) Albumin/Globulin Ratio 0.66 JONO HATFIELD MD Jul 05, 2016 13:56
[2016-07-05] MEDS: SOD CHLORIDE 0.9% 1,000 ML IV SCH ×4 (15:00→23:00)
[2016-07-05 19:47] VITALS: BP 177/82; RESP 16
[2016-07-05 23:28] VITALS: BP 129/80; PULSE 81
[2016-07-06] MEDS: SOD CHLORIDE 0.9% 1,000 ML IV SCH ×3 (04:30→15:00)
[2016-07-06 07:41] VITALS: BP 140/77; RESP 20
[2016-07-06 07:48] LABS: ADD SCAN DIFF NO
[2016-07-06 07:56] LABS: ABNORMAL IP MESSAGE 1; BASOPHIL # 0.1 10^3/ul (0.0-0.1); BASOPHILS % 1.4 % (0.0-2.0); EOSINOPHILS # 0.4 10^3/ul (0.0-0.5); EOSINOPHILS % 6.9 % (0.0-7.0); HEMATOCRIT 30.4 % (42.0-52.0); HEMOGLOBIN 10.6 g/dl (14.0-18.0); LYMPHOCYTES # 1.2 10^3/ul (0.8-2.9); LYMPHOCYTES % 21.5 % (15.0-51.0); MEAN CORPUSCULAR HEMOGLOBIN 35.1 pg (29.0-33.0); MEAN CORPUSCULAR HGB CONC 34.9 g/dl (32.0-37.0); MEAN CORPUSCULAR VOLUME 100.7 fl (82.0-101.0); MEAN PLATELET VOLUME 13.4 fl (7.4-10.4); MONOCYTE # 0.8 10^3/ul (0.3-0.9); MONOCYTES % 14.3 % (0.0-11.0); NEUTROPHIL # 3.1 10^3/ul (1.6-7.5); NEUTROPHILS % 55.5 % (39.0-77.0); RED BLOOD COUNT 3.02 10^6/ul (4.70-6.10); RED CELL DISTRIBUTION WIDTH 15.4 % (11.5-14.5); WHITE BLOOD COUNT 5.5 10^3/ul (4.8-10.8)
[2016-07-06 08:01] LABS: PLATELET COUNT 42 10^3/UL (140-415)
[2016-07-06] MEDS: MULTIVITAMINS 10 ML, THIAMINE 100 MG, FOLIC ACID 1 MG in SOD CHLORIDE 0.9% 1,000 ML IVPB SCH (08:48)
[2016-07-06] MEDS: CHLORDIAZEPOXIDE 25 MG CAP PO SCH ×2 (08:48→15:36)
[2016-07-06] MEDS: LACTULOSE 30ML CUP PO SCH (08:49)
[2016-07-06] MEDS: FAMOTIDINE 20 MG TAB PO SCH (08:49)
--- NOTE | 2016-07-06 17:06 | PN ---
Date/Time of Note Date/Time of Note DATE: 07/06/16 TIME: 16:49 Assessment/Plan VTE Prophylaxis VTE Prophylaxis Intervention: ambulation Lines/Catheters IV [facility]from [facility] Peripheral IV Urinary Cath still in place: No Assessment/Plan Chief Complaint/Hosp Course 1. Alcohol intoxication with fall, improved 2. Head injury with right parietal scalp soft tissue swelling/subgaleal hematoma , no intracranial hemorrhage on CT scan 3. left elbow injury, sling, NWB, follow up with ortho 4. Chronic atrial fibrillation, rate controlled. 5. Hypertension, controlled.. 6. Chronic liver disease secondary to chronic alcoholism with hyperbilirubinemia, thrombocytopenia, coagulopathy, and hyperammonemia 7. Chronic megaloblastic anemia secondary to chronic alcoholism Dispo: Patient's family was contacted and are here to pick up attendant the patient and take him home, yesterday his living situation was not known. Information was given to the family for patient to go to rehab for alcohol abuse. Discussed with family regarding establishing primary care as well. Problems: Subjective 24 Hr Interval Summary Free Text/Dictation Patient sitting at the bedside. In no acute distress. He is ready to go home. Subjective hx not possible: pt non-verbal (which baseline according to family.) Exam/Review of Systems Vital Signs Vitals Vital Signs Date Time Temp Pulse Resp B/P Pulse Ox O2 Delivery O2 Flow Rate FiO2 07/06/16 07:41 97.6 72 20 140/77 99 07/03/16 18:37 Room Air Intake and Output 07/05/16 07/05/16 07/06/16 15:00 23:00 07:00 Intake Total 1020 ml 1360 ml 1272 ml Output Total 600 ml 200 ml 600 ml Balance 420 ml 1160 ml 672 ml Exam Constitutional: alert, non-verbal, well developed Head: normocephalic Respiratory: clear to auscultation Cardiovascular: regular rate and rhythm Gastrointestinal: soft Musculoskeletal: other (bruising of left upper extremity, improving) Neurological: nl strength, other (at baseline mental status as per family) Results Result Diagram: 07/06/16 0721 07/05/16 0757 Results 24 hrs Laboratory Tests Test 07/06/16 07:21 White Blood Count 5.5 Red Blood Count 3.02 L Hemoglobin 10.6 L Hematocrit 30.4 L Mean Corpuscular Volume 100.7 Mean Corpuscular Hemoglobin 35.1 H Mean Corpuscular Hemoglobin Concent 34.9 Red Cell Distribution Width 15.4 H Platelet Count 42 #L Mean Platelet Volume 13.4 H Neutrophils % 55.5 Lymphocytes % 21.5 Monocytes % 14.3 H Eosinophils % 6.9 Basophils % 1.4 Nucleated Red Blood Cells % 0.0 Neutrophils # 3.1 Lymphocytes # 1.2 Monocytes # 0.8 Eosinophils # 0.4 Basophils # 0.1 Nucleated Red Blood Cells # 0.0 Medications Medications Current Medications Multivitamins/ Thiamine HCl/ Folic Acid/Sodium Chloride (Mvi Adult/ Vitamin B1/ Folic Acid/NS) 1,011.2 ml @ 125 mls/ hr DAILY@09 IVPB Last administered on 08:48; Admin Dose 125 MLS/HR; Start 07/04/16 at 09:00 Chlordiazepoxide 25 mg 25 mg TID PO Last administered on 07/06/16 15:36; Admin Dose 25 MG; Start 07/03/16 at 21:00; Stop 07/06/16 at 20:59 Sodium Chloride (NS) 1,000 ml @ 125 mls/hr Q8H IV Last administered on 04:30; Admin Dose 125 MLS/HR; Start 07/03/16 at 15:00 Hydralazine HCl (Apresoline) 10 mg Q6H PRN IV sbp>160mmhg; Start 07/03/16 at 15 :00 Lactulose (Enulose) 20 gm DAILY PO Last administered on 07/06/16 08:49; Admin Dose 20 GM; Start 07/04/16 at 09:00 Acetaminophen (Tylenol Tab) 650 mg Q6H PRN PO PAIN AND OR ELEVATED TEMP; Start 07/03/16 at 15:00 Famotidine (Pepcid) 20 mg BID PO Last administered on 07/06/16 08:49; Admin Dose 20 MG; Start 07/04/16 at 21:00 Lorazepam (Ativan) 1 mg Q4H PRN IV ANXIETY; Start 07/04/16 at 16:30 GALILEA CHASE Jul 06, 2016 16:59
== END 2016-07-06 17:43 | disposition home or self-care (01) | DRG 897 ==
LOC: E/R 05:34 → PP2 11:17
PROVIDERS: ADMIT Family Medicine; ATTEND Family Medicine
PROC: 0HQ0XZZ Repair Scalp Skin, External Approach (ICD-10-PCS; principal; 2016-07-03)
DX: F10.229 Alcohol dependence with intoxication, unspecified (principal); D68.4 Acquired coagulation factor deficiency; D69.6 Thrombocytopenia, unspecified; E72.20 Disorder of urea cycle metabolism, unspecified; S09.90XA Unspecified injury of head, initial encounter; I48.2 Chronic atrial fibrillation; D53.1 Other megaloblastic anemias, not elsewhere classified; S01.01XA Laceration without foreign body of scalp, initial encounter; S59.902A Unspecified injury of left elbow, initial encounter; W18.30XA Fall on same level, unspecified, initial encounter; Y92.410 Unspecified street and highway as the place of occurrence of the external cause; I10 Essential (primary) hypertension; E80.6 Other disorders of bilirubin metabolism; K70.9 Alcoholic liver disease, unspecified; K70.30 Alcoholic cirrhosis of liver without ascites; Y90.8 Blood alcohol level of 240 mg/100 ml or more; Z59.0 Homelessness; Z91.81 History of falling; Z23 Encounter for immunization
CPT/HCPCS: 36415; 70450; 72125; 73090; 73200; 80053; 80306; 82140; 82550; 83735; 85025; 85610; 85730; 90471; 90715; 96374; 96375; 97116; 97530; J2060; J3370; J3411; J7030